=== PATIENT | male | born 1945 | race Caucasian/White ===

== ENCOUNTER 2017-03-18 12:30 | Emergency (ER) | payer OTHER ==
[~2017-03-18] VITALS: Ht 172.7 cm; Wt 72.6 kg
[~2017-03-18 12:30] MED LIST: ADULT LOW DOSE81 MG PO; AMBIEN 10 MG TA10 MG PO; BISACODYL5 MG PO; CALCIUM 500 +1 EAC5 PO; CELLCEPT 250 M250 M1 PO; CENTRUM SILVER1 EAC1 PO; COUMADIN 5 MG TA5 M1 PO; FLOMAX PO; GENGRAF25 MG PO; GLIPIZIDE ER10 MG PO; JANUVIA100 MG PO; LASIX 40 MG TAB40 M1 GT; LEXAPRO 10 MG T10 MG PO; LOVENOX SC; NEURONTIN 400400 M1 PO; NORFLEX100 MG PO; NORVASC10 MG PO; OS-CAL 500+D C1 EACH PO; OXYCONTIN10 M1 PO; PRILOSEC 20 MG20 MG PO; PROGRAF0.5 MG PO; PROPRANOLOL 20M20 MG PO; REMERON15 MG PO; SENOKOT-S1 TA1 GT; URSO FORTE500 MG PO; VITAMIN A10000 UNI3 PO; VITAMIN D250000 UNIT PO; VITCB500GO PO; VORICONAZOLE50 MG PO
[2017-03-18] MEDS ORDERED: SENNA8.6 MG PO (15:04)
[2017-03-18] MEDS ORDERED: OXYCODONE HCL 55 MG PO (15:04)
[2017-03-18 17:01] VITALS: BP 149/67
== END 2017-03-18 17:05 | disposition home or self-care (01) ==
LOC: ER 12:30
DX: M25.571 Pain in right ankle and joints of right foot (principal); I10 Essential (primary) hypertension; E11.9 Type 2 diabetes mellitus without complications; F32.9 Major depressive disorder, single episode, unspecified; Z86.73 Personal history of transient ischemic attack (TIA), and cerebral infarction without residual deficits; Z90.49 Acquired absence of other specified parts of digestive tract; W18.30XA Fall on same level, unspecified, initial encounter; Y93.89 Activity, other specified; Y92.89 Other specified places as the place of occurrence of the external cause; Y99.8 Other external cause status

== ENCOUNTER 2018-10-15 11:27 | Emergency (ER) | payer OTHER ==
[~2018-10-15] VITALS: Ht 182.9 cm; Wt 90.7 kg
[~2018-10-15 11:27] MED LIST changes: +OXYCODONE HCL 55 MG PO; +SENNA8.6 MG PO
[2018-10-15] MEDS ORDERED: NORVASC10 MG PO (11:52)
[2018-10-15] MEDS ORDERED: LIPITOR40 MG PO (11:52)
[2018-10-15] MEDS ORDERED: CITRACAL PO (11:53)
[2018-10-15] MEDS ORDERED: PLAVIX 75 MG TA75 M1 PO (11:54)
[2018-10-15 14:02] VITALS: BP 126/63
== END 2018-10-15 14:03 | disposition home or self-care (01) ==
LOC: ER 11:27
DX: S01.312A Laceration without foreign body of left ear, initial encounter (principal); S29.8XXA Other specified injuries of thorax, initial encounter; D69.1 Qualitative platelet defects; Z79.02 Long term (current) use of antithrombotics/antiplatelets; I10 Essential (primary) hypertension; M54.2 Cervicalgia; G89.29 Other chronic pain; F32.9 Major depressive disorder, single episode, unspecified; Z90.49 Acquired absence of other specified parts of digestive tract; W06.XXXA Fall from bed, initial encounter; Y93.89 Activity, other specified; Y92.89 Other specified places as the place of occurrence of the external cause; Y99.8 Other external cause status

== ENCOUNTER 2018-11-22 20:14 | Emergency (ER) | payer OTHER ==
[~2018-11-22] VITALS: Ht 188 cm; Wt 95.3 kg
[~2018-11-22 20:14] MED LIST changes: +CITRACAL PO; +LIPITOR40 MG PO; +PLAVIX 75 MG TA75 M1 PO
[2018-11-22] MEDS ORDERED: TRAMADOL 50 MG50 MG PO ×2 (22:14→22:17)
[2018-11-22 22:15] VITALS: BP 142/78
== END 2018-11-22 22:15 | disposition home or self-care (01) ==
LOC: ER 20:14
DX: M25.571 Pain in right ankle and joints of right foot (principal); M25.561 Pain in right knee; I10 Essential (primary) hypertension; E11.9 Type 2 diabetes mellitus without complications; F32.9 Major depressive disorder, single episode, unspecified; Z86.73 Personal history of transient ischemic attack (TIA), and cerebral infarction without residual deficits; Z90.49 Acquired absence of other specified parts of digestive tract; Z94.2 Lung transplant status; W18.39XA Other fall on same level, initial encounter; Y93.89 Activity, other specified; Y92.89 Other specified places as the place of occurrence of the external cause; Y99.8 Other external cause status